=== PATIENT | female | born 1950 | race Caucasian/White ===

== ENCOUNTER 2017-08-31 08:28 | Emergency (ER) | payer MEDICARE, OTHER ==
[2017-08-31] MEDS: ONDANSETRON 4 MG INJ IV (11:02)
[2017-08-31] MEDS: morphine 4 MG/ML VIAL IV (11:02)
[2017-08-31] MEDS: ASPIRIN 325 MG TAB PO (11:02)
[2017-08-31 11:23] LABS: ADD MAN DIFF? NO
[2017-08-31 11:33] LABS: WHITE BLOOD COUNT 8.3 10^3/ul (4.8-10.8)
[2017-08-31 11:33] LABS: BASOPHIL # 0.1 10^3/ul (0.0-0.1); BASOPHILS % 0.8 % (0.0-2.0); EOSINOPHILS # 0.1 10^3/ul (0.0-0.5); EOSINOPHILS % 1.6 % (0.0-7.0); HEMATOCRIT 37.8 % (37.0-47.0); HEMOGLOBIN 12.2 g/dl (12.0-16.0); LYMPHOCYTES # 2.6 10^3/ul (0.8-2.9); MEAN CORPUSCULAR HEMOGLOBIN 28.1 pg (29.0-33.0); MEAN CORPUSCULAR HGB CONC 32.3 g/dl (32.0-37.0); MEAN CORPUSCULAR VOLUME 87.1 fl (82.0-101.0); MEAN PLATELET VOLUME 9.1 fl (7.4-10.4); MONOCYTE # 0.6 10^3/ul (0.3-0.9); MONOCYTES % 7.7 % (0.0-11.0); NEUTROPHIL # 4.9 10^3/ul (1.6-7.5); NEUTROPHILS % 58.7 % (39.0-77.0); PLATELET COUNT 450 10^3/UL (140-415); RED BLOOD COUNT 4.34 10^6/ul (4.20-5.40); RED CELL DISTRIBUTION WIDTH 13.5 % (11.5-14.5)
[2017-08-31 11:43] LABS: ANION GAP 14 (8-16); BLOOD UREA NITROGEN 15 mg/dl (7-20); CALCIUM 9.7 mg/dl (8.4-10.2); CARBON DIOXIDE 27 mmol/L (21-31); CHLORIDE 107 mmol/L (97-110); CREATININE 0.94 mg/dl (0.44-1.00); GLUCOSE 86 mg/dl (70-220); SODIUM 143 mmol/L (135-144)
[2017-08-31 11:55] LABS: TROPONIN-I 0.017 ng/ml (0.00-0.12)
[2017-08-31 12:10] LABS: INR 1.04; PROTIME 13.7 Sec (11.9-14.9); PT RATIO 1.1
[2017-08-31 12:11] LABS: PARTIAL THROMBOPLASTIN TIME 33.1 Sec (25.0-35.0)
[2017-08-31] MEDS: SOD CHLORIDE 0.9% 100 ML (12:14)
[2017-08-31] MEDS: IOHEXOL 300MG/ML 150 ML BTL (12:14)
== END 2017-08-31 14:04 | disposition home or self-care (01) ==
LOC: FTE 08:28
DX: J20.9 Acute bronchitis, unspecified (principal); E03.9 Hypothyroidism, unspecified; G20 Parkinson's disease
CPT/HCPCS: 36415; 71275; 80048; 84484; 85025; 85610; 85730; 96374; 96375; 99285-25